=== PATIENT | male | born 1950 | race Caucasian/White ===

== ENCOUNTER → 2016-07-11 | Day surgery (SDC) | payer MEDICARE, OTHER ==
[~2016-07-11] MED LIST: FENTANYL PF 100 MCG/2 ML VIAL. IV PRN; IV RINGERS,LACTATED 1000ML 1,000 ML IV SCH; LIDOCAINE 1% 1 ML SYRINGE. ID PRN; LISI10TA2 PO; MIDAZOLAM HCL 2 MG/2 ML VIAL. IV PRN; PROPOFOL 40 ML IV ONE; RANI150C PO; TADA5TAB PO
[2016-07-11 11:51] VITALS: BP 144/86
--- NOTE | 2016-07-14 13:25 | PATHOLOGY ---
PATHOLOGY REPORT * * * * * * * * FINAL DIAGNOSIS: Colon biopsy, hepatic flexure polyp: - Tubular adenoma. COMMENT: There is no high grade dysplasia or evidence of malignancy. (JPM:csd; d/t: 07/14/2016) REPORT ELECTRONICALLY SIGNED BY: Mark Zaragoza M.D. DATE/TIME: 07/14/2016 13:24 * * * * * * * * GROSS PATHOLOGY: Received in formalin labeled "Evans Wright, hepatic flexure polyp," are two segments of loera soft tissue measuring 0.5 x 0.5 x 0.1 cm in aggregate dimensions and ranging from 0.4 to 0.5 cm in maximum dimension. The specimen is submitted entirely in cassette A1. (CAA; 07/11/2016) INITIAL CPT CODE(S): A; 46195 Professional services [place] [address] Technical services performed by [facility] at [address] [place] [address], [facility] [address] [address]. SPECIMEN(S) RECEIVED: A.Hepatic flexure polyp CLINICAL HISTORY: Dysphagia, CRCS PATIENT: EVANS WRIGHT /AGE: 11 1950 (Age: 66) PATIENT #: [id number] ALT CASE #: SPECIMEN COLLECTION DATE: 07/11/2016 SPECIMEN RECEIVED DATE: 07/11/2016 [facility] - [address] [place] [address] - PHONE: [phone] * * * END OF REPORT * * *
== END | disposition home or self-care (01) ==
LOC: ENDOS 09:29
PROVIDERS: ATTEND Internal Medicine Gastroenterology
DX: Z12.11 Encounter for screening for malignant neoplasm of colon (principal); K64.0 First degree hemorrhoids; D12.3 Benign neoplasm of transverse colon; K22.2 Esophageal obstruction; K29.50 Unspecified chronic gastritis without bleeding; M19.90 Unspecified osteoarthritis, unspecified site; I10 Essential (primary) hypertension; Z83.3 Family history of diabetes mellitus; Z85.46 Personal history of malignant neoplasm of prostate; Z72.89 Other problems related to lifestyle
CPT/HCPCS: 43235; 43450; 45385; 88305; J2704

== ENCOUNTER 2016-09-25 19:06 | Inpatient (IN) | payer MEDICARE, OTHER ==
[~2016-09-25] VITALS: Ht 177.8 cm; Wt 86.2 kg
[~2016-09-25 19:06] MED LIST changes: -FENTANYL PF 100 MCG/2 ML VIAL. IV PRN; -IV RINGERS,LACTATED 1000ML 1,000 ML IV SCH; -LIDOCAINE 1% 1 ML SYRINGE. ID PRN; -MIDAZOLAM HCL 2 MG/2 ML VIAL. IV PRN; -PROPOFOL 40 ML IV ONE
[2016-09-25] MEDS ORDERED: 0.9 % SODIUM CHLORIDE 10 ML DISP.SYRIN. IV PRN (19:15)
[2016-09-25] MEDS ORDERED: dilTIAZem IV PUSH 25 MG/5 ML VIAL IVP ONE (19:15)
[2016-09-25] MEDS ORDERED: ASPIRIN CHEWABLE 81 MG TABLET. PO ONE (19:15)
[2016-09-25] MEDS ORDERED: IV NORMAL SALINE 1000ML BAG 1,000 ML IV SCH (19:15)
--- NOTE | 2016-09-25 19:21 | PHYS DOC ---
Past Medical History Past Medical History: Arthritis, Cancer, GERD, Hypertension Additional Past Medical Histor: prostate cancer Past Surgical History: Other Additional Past Surgical Histo: prostate removed Alcohol Use: Heavy Drug Use: None Adult General Chief Complaint Chief Complaint: CHEST PAIN HPI HPI He is a pleasant 66-year-old male with a history of palpitations and prior Holter monitor that showed no acute findings. Today while getting home from work about 5 PM patient admits to having palpitations with some lightheaded dizziness and mild shortness of breath with no nausea, vomiting, diarrhea or chest pain. He says he feels anxious when he has these episodes last anywhere from a few minutes to half an hour. Upon arrival here to the mother but he had no complaint and his heart rate was normal. EMS when they picked him up his only complaint at the time was that he had to use restroom and as he was feeling palpitations. During the transportation they picked up A. fib and RVR on the monitor. She never had a history of such in the past. Patient denies any drug use, travel outside the country, other PE risk factors. Patient does admit he drinks anywhere from 4-6 beers daily and have her urine weekends. He's never had withdrawal symptoms, they're had any nausea vomiting or tremors after stopping taking alcohol. Patient denies any URI symptoms, fever, cough, runny nose, peripheral edema night sweats weight loss or other complaints. On initial presentation patient demonstrated palpitations with a heart rate greater than 130s on a monitor it looked as if it were H A. fib relation with RVR. Initial work up included alcohol level, cardiac workup, appropriate chest x -ray, fluids, antiemetics, diltiazem, aspirin, and admission to the hospital for evaluation of palpitations. Review of Systems Review of Systems Constitutional: Denies fever or chills [] Eyes: Denies change in visual acuity, redness, or eye pain [] HENT: Denies nasal congestion or sore throat [] Respiratory: Denies cough or shortness of breath [] Cardiovascular: No additional information not addressed in HPI [] GI: Denies abdominal pain, nausea, vomiting, bloody stools or diarrhea [] : Denies dysuria or hematuria [] Musculoskeletal: Denies back pain or joint pain [] Integument: Denies rash or skin lesions [] Neurologic: Denies headache, focal weakness or sensory changes [] Endocrine: Denies polyuria or polydipsia [] Current Medications Current Medications Current Medications Medications (Trade) Dose Ordered Sig/Kristina Start Time Stop Time Status Last Admin Dose Admin Acetaminophen (Tylenol) 650 mg PRN Q4HRS PRN 09/25/16 20:15 09/26/16 20:14 Aspirin (Children'S Aspirin) 324 mg 1X ONCE 09/25/16 19:15 09/25/16 19:18 DC Diltiazem HCl (Cardizem) 20 mg 1X ONCE 09/25/16 19:15 09/25/16 19:18 DC 09/25/16 19:35 20 MG Enoxaparin Sodium (Lovenox 80mg Syringe) 80 mg 1X ONCE 09/25/16 20:15 09/25/16 20:19 DC 09/25/16 20:26 80 MG Ondansetron HCl (Zofran) 4 mg PRN Q8HRS PRN 09/25/16 20:15 09/26/16 20:14 Sodium Chloride (Normal Saline Flush) 10 ml QSHIFT PRN 09/25/16 19:15 Allergies Allergies Allergies Coded Allergies Type Severity Reaction Last Updated Verified No Known Drug Allergies 07/11/16 No Physical Exam Physical Exam Constitutional: Well developed, well nourished, no acute distress, non-toxic appearance. [] HENT: Normocephalic, atraumatic, bilateral external ears normal, oropharynx moist, Eyes: PERRLA, EOMI, conjunctiva normal, no discharge. [] Neck: Normal range of motion, no tenderness, supple, no stridor. [] Cardiovascular: Irregular regular rhythm and rate patient noted be tachycardic Lungs & Thorax: Bilateral breath sounds clear to auscultation [] Abdomen: Bowel sounds normal, soft, no tenderness, no masses, no pulsatile masses. [] Skin: Warm, dry, no erythema, no rash. [] Back: No tenderness, no CVA tenderness. [] Extremities: No tenderness, no cyanosis, no clubbing, ROM intact, no edema. [] Neurologic: Alert and oriented X 3, normal motor function, normal sensory function, no focal deficits noted. [] Psychologic: Affect normal, judgement normal, mood normal. [] Current Patient Data Vital Signs Vital Signs Date Time Temp Pulse Resp B/P (MAP) Pulse Ox O2 Delivery O2 Flow Rate FiO2 09/25/16 19:35 134 140/95 09/25/16 19:06 99.0 18 97 Room Air 99.0 Patient noted to be tachycardic without get the or hypoxia. Lab Values Laboratory Tests Test 09/25/16 19:10 09/25/16 19:15 Urine Collection Type Unknown Urine Color Yellow Urine Clarity Clear Urine pH 6.0 Urine Specific [place] <=1.005 Urine Protein Negative mg/dL (NEG-TRACE) Urine Glucose (UA) Negative mg/dL (NEG) Urine Ketones (Stick) Negative mg/dL (NEG) Urine Blood Negative (NEG) Urine Nitrite Negative (NEG) Urine Bilirubin Negative (NEG) Urine Urobilinogen Dipstick 0.2 mg/dL (0.2 mg/dL) Urine Leukocyte Esterase Negative (NEG) Urine RBC 0 /HPF (0-2) Urine WBC 0 /HPF (0-4) Urine Squamous Epithelial Cells Few /LPF Urine Bacteria 0 /HPF (0-FEW) Urine Opiates Screen Neg (NEG) Urine Methadone Screen Neg (NEG) Urine Barbiturates Neg (NEG) Urine Phencyclidine Screen Neg (NEG) Urine Amphetamine/Methamphetamine Neg (NEG) Urine Benzodiazepines Screen Neg (NEG) Urine Cocaine Screen Neg (NEG) Urine Cannabinoids Screen Neg (NEG) Urine Ethyl Alcohol Neg (NEG) White Blood Count 7.2 x10^3/uL (4.0-11.0) Red Blood Count 5.04 x10^6/uL (4.30-5.70) Hemoglobin 15.9 g/dL (13.0-17.5) Hematocrit 46.4 % (39.0-53.0) Mean Corpuscular Volume 92 fL (79-100) Mean Corpuscular Hemoglobin 32 pg (25-35) Mean Corpuscular Hemoglobin Concent 34 g/dL (31-37) Red Cell Distribution Width 13.2 % (11.5-14.5) Platelet Count 243 x10^3/uL (140-400) Neutrophils (%) (Auto) 67 % (31-73) Lymphocytes (%) (Auto) 21 % (24-48) L Monocytes (%) (Auto) 8 % (0-9) Eosinophils (%) (Auto) 4 % (0-3) H Basophils (%) (Auto) 1 % (0-3) Neutrophils # (Auto) 4.9 x10^3uL (1.8-7.7) Lymphocytes # (Auto) 1.5 x10^3/uL (1.0-4.8) Monocytes # (Auto) 0.5 x10^3/uL (0.0-1.1) Eosinophils # (Auto) 0.3 x10^3/uL (0.0-0.7) Basophils # (Auto) 0.0 x10^3/uL (0.0-0.2) D-Dimer ([place]) < 0.27 ug/mlFEU Sodium Level 143 mmol/L (136-145) Potassium Level 3.6 mmol/L (3.5-5.1) Chloride Level 106 mmol/L (98-107) Carbon Dioxide Level 26 mmol/L (21-32) Anion Gap 11 (6-14) Blood Urea Nitrogen 23 mg/dL (8-26) Creatinine 1.0 mg/dL (0.7-1.3) Estimated GFR (Cockcroft-Gault) 75.0 Glucose Level 143 mg/dL (70-99) H Calcium Level 9.4 mg/dL (8.5-10.1) Magnesium Level 2.3 mg/dL (1.8-2.4) Total Bilirubin 0.4 mg/dL (0.2-1.0) Direct Bilirubin 0.1 mg/dL (0.0-0.2) Aspartate Amino Transferase (AST) 23 U/L (15-37) Alanine Aminotransferase (ALT) 34 U/L (16-63) Alkaline Phosphatase 159 U/L (46-116) H Creatine Kinase 131 U/L (39-308) Creatine Kinase MB (Mass) 2.2 ng/mL (0.0-3.6) Creatine Kinase MB Relative Index 1.7 % (0-4) Troponin I Quantitative < 0.017 ng/mL (0.000-0.055) LY-Mse-W-Type Natriuretic Peptide 127 pg/mL (0-124) H Total Protein 7.3 g/dL (6.4-8.2) Albumin 4.1 g/dL (3.4-5.0) Lipase 271 U/L (73-393) Thyroid Stimulating Hormone (TSH) 1.123 uIU/mL (0.358-3.74) Ethyl Alcohol Level < 10 mg/dL (0-10) Laboratory Tests 09/25/16 19:15 Laboratory Tests 09/25/16 19:15 EKG EKG [] KG timed 1913 p.m. 09/25/2016 demonstrates atrial fibrillation with a rate of [address] segment T-wave changes consistent with ischemia EKG read by Dr. Camacho. Radiology/Procedures Radiology/Procedures [] Chest x-ray read by Dr. Camacho time is 192709/25/2016 chest x-ray demonstrates normal cardiac shadow no obvious tortuous aorta or constipation of the aorta no infiltrates or pneumothorax is no subcutaneous tenderness air or deep sulcus sign subdiaphragmatic air. Otherwise normal looking chest x-ray. Course & Med Decision Making Course & Med Decision Making Pertinent Labs and Imaging studies reviewed. (See chart for details) []Hide Shaker note: Mary Martinez of internal medicine his primary care doctor Hide Shaker called at of the service cultures had 8:10 PM Consult called back at 8:35 PM Discussed the case I presented and they agreed with admission. Time of acceptance 8:35 PM Differential diagnosis for chest pain: Pericarditis, myocarditis, endocarditis, pneumothorax, pneumonia, aortic dissection, esophageal spasm, esophagitis, peptic ulcer disease, acute coronary syndrome, mediastinitis, Boerhaave syndrome , musculoskeletal chest wall pain, costochondritis, intercostal strain, rib fracture, pulmonary contusion, pneumonitis, pleural effusion, pericardial effusion, pericardial tamponode, and pleurisy. Considered as part of the evaluation of this patient's presentation. I'm concerned that this is part of holiday heart and his consumption of alcohol may be causing this atrial arrhythmia. Patient's been given IV fluids, antiemetics, as well as aspirin and rectal age and diltiazem. Patient is comfortable rate is well-controlled in the mid 80s at this time he still not atrial ablation. Patient also given a subcutaneous Lovenox will be seen by cardiology and continued evaluation to rule out cardiac ischemia and treatment Either ablated or treated with either electricity or medications to control the rhythm. Impression: Atrial fibrillation new onset with palpitation disposition: Admission to the hospital internal medicine service with cardiology evaluation. Dragon Disclaimer Dragon Disclaimer This electronic medical record was generated, in whole or in part, using a voice recognition dictation system. Departure Departure Impression: Primary Impression: Palpitations Additional Impression: Atrial fibrillation Disposition: 09 ADMITTED INPATIENT Admitting Physician: Mary Martinez Referrals: MARY MARTINEZ MD (PCP) Problem Qualifiers MICHELINE CAMACHO MD Sep 25, 2016 19:21
[2016-09-25 19:31] LABS: BILIRUBIN,URINE NEGATIVE (NEG); GLUCOSE,URINE NEGATIVE (NEG); NITRITE,URINE NEGATIVE (NEG); PROTEIN,URINE NEGATIVE (NEG-TRACE); UROBILINOGEN,URINE 0.2 mg/dL (0.2 mg/dL)
[2016-09-25 19:32] LABS: BASO % 1 % (0-3); EOS % 4 % (0-3); HEMATOCRIT 46.4 % (39.0-53.0); HEMOGLOBIN 15.9 g/dL (13.0-17.5); LYMPH # 1.5 x10^3/uL (1.0-4.8); LYMPH % 21 % (24-48); MEAN CORPUSCULAR HEMOGLOBIN 32 pg (25-35); MEAN CORPUSCULAR HGB CONC 34 g/dL (31-37); MEAN CORPUSCULAR VOLUME 92 fL (79-100); MONO % 8 % (0-9); NEUT % 67 % (31-73); PLATELET COUNT 243 x10^3/uL (140-400); RED BLOOD COUNT 5.04 x10^6/uL (4.30-5.70); RED CELL DISTRIBUTION WIDTH 13.2 % (11.5-14.5); WHITE BLOOD COUNT 7.2 x10^3/uL (4.0-11.0)
[2016-09-25 19:35] LABS: BARBITURATES NEG (NEG); BENZODIAZEPINES NEG (NEG); CANNABINOIDS NEG (NEG); COCAINE NEG (NEG); METHADONE NEG (NEG); OPIATES NEG (NEG); PHENCYCLIDINE NEG (NEG)
[2016-09-25 19:41] LABS: BACTERIA,URINE 0 /HPF (0-FEW); RBC,URINE 0 /HPF (0-2); SQUAMOUS EPITHELIAL CELL,UR FEW /LPF; WBC,URINE 0 /HPF (0-4)
[2016-09-25 19:59] LABS: CALCIUM 9.4 mg/dL (8.5-10.1); POTASSIUM 3.6 mmol/L (3.5-5.1)
[2016-09-25 20:06] LABS: ALBUMIN 4.1 g/dL (3.4-5.0); DIRECT BILIRUBIN 0.1 mg/dL (0.0-0.2); MAGNESIUM 2.3 mg/dL (1.8-2.4); TOTAL BILIRUBIN 0.4 mg/dL (0.2-1.0); TOTAL PROTEIN 7.3 g/dL (6.4-8.2)
[2016-09-25] MEDS ORDERED: ACETAMINOPHEN 325 MG TABLET. PO PRN (20:15)
[2016-09-25] MEDS ORDERED: ONDANSETRON PF 4 MG/2 ML VIAL. IV PRN (20:15)
[2016-09-25 20:23] LABS: CKMB MASS 2.2 ng/mL (0.0-3.6)
[2016-09-25 22:17] VITALS: BP 132/95
[2016-09-25] MEDS ORDERED: CELE200C PO (23:31)
[2016-09-26 03:29] VITALS: BP 118/81
--- NOTE | 2016-09-26 06:11 | EKG ---
[facility] [address] [place] [address] Test Date: 2016-09-25 Test Time: 19:13:22 Pat Name: JOSEPH WRIGHT Department: Room: 209 1 Gender: M Remotely Piloted Vehicle Controller: : 1950 Requested By: MICHELINE CAMACHO Order Number: [id number] Reading MD: Mekhi Dempsey Measurements Intervals [place] Rate: 127 P: FL: QRS: -4 QRSD: 82 T: 40 QT: 302 QTc: 444 Interpretive Statements ATRIAL FIBRILLATION, RATE 127. NONSPECIFIC ST-T WAVE CHANGES. LEFTWARD AXIS RI6.01 Unconfirmed report No previous ECG available for comparison Electronically Signed On 10-01-2016 9:24:08 CDT by Mekhi Dempsey
[2016-09-26 07:00] VITALS: BP 138/92
--- NOTE | 2016-09-26 07:05 | EKG ---
[facility] [address] [place] [address] Test Date: 2016-09-25 Test Time: 20:39:41 Pat Name: JOSEPH WRIGHT Department: Room: 209 1 Gender: M Director Commercial Sales: : 1950 Requested By: MICHELINE CAMACHO Order Number: [id number] Reading MD: Mekhi Dempsey Measurements Intervals [place] Rate: 86 P: OR: QRS: -7 QRSD: 86 T: 22 QT: 362 QTc: 436 Interpretive Statements ATRIAL FIBRILLATION. LEFTWARD AXIS NONSPECIFIC ST-T WAVE CHANGES. RI6.01 Unconfirmed report No previous ECG available for comparison Electronically Signed On 10-01-2016 9:24:50 CDT by Mekhi Dempsey
--- NOTE | 2016-09-26 08:02 | ACF ---
Admission Forms Criteria TELEMETRY CARE Telemetry Admission Guidelines (Place 'X' for any and all applicable criteria): Admission to telemetry [A] may be indicated for ANY ONE of the following(1)(2)(3 )(4)(5): [X]I. Cardiac disease, including ANY ONE of the following (9)(10)(11)(12)(13 ): [ ]a) Postacute KS [ ]b) Low-risk patients with ST-segment elevation KS who have undergone successful percutaneous coronary intervention [ ]c) Unstable angina [ ]d) Suspected KS (until it is ruled out) [ ]e) Post cardiac surgery (first 48 to 72 hours unless complications occur) [X]f) Acute arrhythmias (including significant tachycardia or bradycardia) [B] [ ]g) Firing of an implantable cardioverter defibrillator [C] [ ]h) Suspected pacemaker or implantable cardioverter defibrillator malfunction (10) [ ]i) New administration or adjustment of an antiarrhythmic drug [D ] [ ]j) Child admitted for acute congestive heart failure [ ]j) Long QT syndrome [ ]k) Advanced heart block (eg, second-degree Mobitz type II, third- degree heart block) [ ]l) Acute myocarditis or pericarditis [ ]m) Short-term (ambulatory or inpatient) monitoring after a cardiac procedure as indicated by ANY ONE of the following [E]: [ ]i) Electrophysiologic studies [ ]ii) Percutaneous coronary intervention with stent placement [ ]iii) Pacemaker placement with cardiac conduction defect [ ]iv) Implantable cardiac defibrillator placement [ ]II. Drug overdose or poisoning with substance that causes arrhythmias or QT prolongation (eg, phenothiazines, sympathomimetic agents, cyclic antidepressants, digitalis, antiarrhythmic drugs)(15) [ ]III. Short-term (ambulatory or inpatient) monitoring after therapeutic or diagnostic procedure requiring conscious sedation or anesthesia (eg, endoscopy, elective cardioversion) [ ]IV. Acute cerebrovascular even[F](18) [ ]V. Massive blood transfusion (eg, at least 10 units of packed red blood cells in 24 hours) [ ]. Variceal bleeding after endoscopy, sclerotherapy, or IV vasopressin [ ]VII. Uncorrected electrolyte abnormalities associated with an increased risk of dangerous arrhythmia [G]; examples include [ ]a) Hyperkalemia with attributable ECG changes [ ]b) Potassium greater than 6.5 mmol/L (mEq/L) in a patient without history of chronic renal disease [ ]c) Prolonged QT attributed to hypokalemia, hypomagnesemia, or hypocalcemia [ ]VIII.Unexplained syncope or other neurologic event suspected of being due to arrhythmia due to a finding that increases risk; examples include(19)(20)(21): [ ]a) High-risk ECG findings (eg, bifascicular block, bradycardia, abnormal QT interval, ventricular pre- excitation) [ ]b) History of previous syncope due to arrhythmia [ ]c) Abnormal ventricular function (eg, reduced ejection fraction ) [ ]d) Exertional or supine syncope [ ]e) Concerning syncope characteristics (eg, sudden loss of consciousness without prodrome) [ ]f) Family history of sudden [ ]g) Use of arrhythmogenic medication [ ]h) Suspected cardiac ischemia [ ]i) Known channelopathy (eg, long QT syndrome, Brugada syndrome, or catecholaminergic paroxysmal ventricular tachycardia) [ ]j) Known structural heart disease (eg, hypertrophic cardiomyopathy , severe valvular disease) [ ]k) Palpitations preceding syncope The original [employer] content created by [employer] has been revised. The portions of the content which have been revised are identified through the use of italic text or in bold, and [email or web address] has neither reviewed nor approved the modified material. All other unmodified content is copyright [employer]. Please see references footnoted in the original [employer] edition 2016 Admission Criteria Met?: Yes SHARAD BOWEN Sep 26, 2016 08:02
--- NOTE | 2016-09-26 08:14 | RAD ---
Exam: PA and lateral chest radiograph History: Tachycardia for one day, palpitations. Comparison: None. Findings: Cardiomediastinal silhouette is within normal limits for size. Bilateral lung rahman are free of focal infiltrate. No pleural effusion is seen. There is mild wedging of 2 adjacent mid thoracic vertebral bodies, age indeterminate, may be old. Impression: No acute cardiopulmonary process.
--- NOTE | 2016-09-26 08:56 | PDOC ---
Provider Note Provider Note [id number] MARY ROPER MD Sep 26, 2016 08:56
[2016-09-26] MEDS ORDERED: LISINOPRIL 10 MG TABLET PO SCH (09:00)
[2016-09-26] MEDS ORDERED: FAMOTIDINE 20 MG TABLET. PO SCH (09:00)
[2016-09-26] MEDS ORDERED: CELECOXIB 200 MG CAPSULE. PO SCH (09:00)
[2016-09-26] MEDS ORDERED: ASPIRIN 325 MG TABLET PO SCH (09:30)
--- NOTE | 2016-09-26 09:47 | HP ---
ADMIT DATE: 09/25/2016 CHIEF COMPLAINT: Irregular heartbeat, shortness of breath. HISTORY OF PRESENT ILLNESS: A 66-year-old white male who is normally healthy with mild hypertension and has had recurrent episodes of palpitations in the past. He has worn a Holter monitor at least once through Dr. Alicea and apparently no arrhythmias were found. He was having some shortness of breath and mild chest discomfort while at home working on the computer and was found to have a rapid heartbeat and in the Emergency Room was found to be in atrial fibrillation with rapid ventricular response. He was given some diltiazem and then aspirin and Lovenox and he converted spontaneously a few hours later on the floor and he has had no further problems since then. His initial cardiac enzymes and labs were all within normal limits. MEDICATIONS: Include lisinopril daily, Cialis for prostate symptoms, Zantac and Celebrex. ALLERGIES: No allergies are known. He has had no previous myocardial infarctions or any significant medical problems. SOCIAL HISTORY: He is , employed. He drinks 3-6 drinks on a daily basis, sometimes more on weekends, but does not admit to withdrawal symptoms and he does not drink. He is a nonsmoker. FAMILY HISTORY: Unremarkable. REVIEW OF SYSTEMS: No other complaints. OBJECTIVE: ENT: All within normal limits. NECK: No masses, nodes or bruits. LUNGS: Clear. CARDIOVASCULAR: Regular rate. No irregular beat, murmur or tachycardia. ABDOMEN: Soft, benign and nontender. No masses, megaly or nodes. EXTREMITIES: Good pedal and radial pulses. No joint or skin lesions or nail bed findings. NEUROLOGIC: Physiologic, nonfocal. No tremors, no changes in mental status or cranial nerves. GENITOURINARY AND RECTAL: Deferred. ASSESSMENT: Transient atrial fibrillation with rapid ventricular response. This may have been intermittent over the last several months at an unknown frequency. Most likely etiology is alcohol at this time as he has controlled hypertension and is not hyperthyroid and does not have a known lung disease. PLAN: Echo to evaluate for any evidence of mitral valve disease and myocardial ejection fraction level. Cardiology consult, daily aspirin. We may need to consider the use of daily prophylactic medicines perhaps beta hitesh or diltiazem. MARY ROPER MD DR: KIRSTIN/carrie JOB#: [id number] / [id number]
[2016-09-26 11:00] VITALS: BP 156/92
--- NOTE | 2016-09-26 11:19 | PDOC2 ---
SHAYLA SOL SAND DRIER 09/26/16 1119: CARDIAC CONSULT DATE OF CONSULT Date of Consult DATE: 09/26/16 TIME: 11:14 REASON FOR CONSULT Reason for Consult: AFIB REFERRING PHYSICIAN Referring Physician: Juan SOURCE Source: Chart review, Patient HISTORY OF PRESENT ILLNESS HISTORY OF PRESENT ILLNESS This is a pleasant 66 yo male admitted for complains of palpitations and chest pain. Reports that he has been having palpitations episode and usually fades away. This has been occurring probably once a wk as he reported and it has not been really bothering him till yesterday. Yesterday afternoon about 4 PM he came home from work, was working on his computer when he started having sensation of palpitations then followed by chest tightness. Eventually he felt a little SOA. He felt his wrist and his pulse was fast and he could not even count it and erratic. This lasted about 20 minutes before getting better. Around 0630 his asked him to carry the paddle board and that is when he started not feeling good and his previous symptoms recurred and EMS was called. In ED he was noted with AFIB RVR and was given cardizem IV x1 and he actually converted eventually without continuous cardizem infusion. He had a holter in 2013 and was noted with frequent PVCs but no AFIB. Denies having any AFIB in the past. No prior CAD, VTE. Denies any previous internal bleeding. He does drink 2 shots of rum daily with coke. pPast tobaccoism. Denies any symptoms of UVALDO and no excessive caffeinated beverages. PAST MEDICAL HISTORY Cardiovascular: HTN, Other (venous insufficiency) Pulmonary: No pertinent hx CENTRAL NERVOUS SYSTEM: Other (No pertinent history) GI: GERD, Hemorrhoids Heme/Onc: Cancer (prostate) Hepatobiliary: No pertinent hx Psych: No pertinent hx Musculoskeletal: Osteoarthritis Rheumatologic: No pertinent hx Infectious disease: No pertinent hx ENT: No pertinent hx Renal/: Prostate Ca., Other (ED; nephrolithiasis) Endocrine: No pertinent hx Dermatology: No pertinent hx PAST SURGICAL HISTORY Past Surgical History: Appendectomy, Other (prostatectomy; cystoscopy with lithotripsy) FAMILY HISTORY Family History: Coronary Artery Disease (mother and father) SOCIAL HISTORY Smoke: No (10-15 pk yr, quit a while back) ALCOHOL: other (2 shots of rum daily) Drugs: None Lives: with Family CURRENT MEDICATIONS CURRENT MEDICATIONS Current Medications Medications (Trade) Dose Ordered Sig/Kristina Route PRN Reason Start Time Stop Time Status Last Admin Dose Admin Diltiazem HCl (Cardizem) 20 mg 1X ONCE IVP 09/25/16 19:15 09/25/16 19:18 DC 09/25/16 19:35 Sodium Chloride 1,000 ml @ 1,000 mls/hr Q1H IV 09/25/16 19:15 09/25/16 20:14 DC 09/25/16 19:34 Enoxaparin Sodium (Lovenox 80mg Syringe) 80 mg 1X ONCE SQ 09/25/16 20:15 09/25/16 20:19 DC 09/25/16 20:26 Celecoxib (CeleBREX) 200 mg DAILY PO 09/26/16 09:00 09/26/16 09:24 Lisinopril (Prinivil) 10 mg DAILY PO 09/26/16 09:00 09/26/16 09:24 Famotidine (Pepcid) 20 mg BID PO 09/26/16 09:00 09/26/16 09:24 Aspirin (Alice Aspirin) 325 mg DAILYWBKFT PO 09/26/16 09:30 09/26/16 09:24 ALLERGIES ALLERGIES: Coded Allergies: No Known Drug Allergies (Unverified , 07/11/16) ROS Review of System 14 point ROS evaluated with pertinent positives noted per HPI PHYSICAL EXAM General: Alert, Oriented X3, Cooperative, No acute distress HEENT: Atraumatic, Mucous membr. moist/pink Lungs: Clear to auscultation, Normal air movement Heart: Regular rate, Normal S1, Normal S2, No murmurs Abdomen: Soft, No tenderness Extremities: No cyanosis, No edema Skin: No breakdown, No significant lesion Neuro: Normal speech, Sensation intact Psych/Mental Status: Mental status NL, Mood NL MUSCULOSKELETAL: Osteoarthritic changes both hands VITALS VITALS Vital Signs Date Time Temp Pulse Resp B/P (MAP) Pulse Ox O2 Delivery O2 Flow Rate FiO2 09/26/16 09:24 54 138/92 09/26/16 07:55 Room Air 09/26/16 07:00 98.0 16 95 98.0 LABS Lab: Laboratory Tests Test 09/25/16 19:10 09/25/16 19:15 09/26/16 02:15 09/26/16 08:13 Urine Collection Type Unknown Urine Color Yellow Urine Clarity Clear Urine pH 6.0 Urine Specific [place] <=1.005 Urine Protein Negative mg/dL (NEG-TRACE) Urine Glucose (UA) Negative mg/dL (NEG) Urine Ketones (Stick) Negative mg/dL (NEG) Urine Blood Negative (NEG) Urine Nitrite Negative (NEG) Urine Bilirubin Negative (NEG) Urine Urobilinogen Dipstick 0.2 mg/dL (0.2 mg/dL) Urine Leukocyte Esterase Negative (NEG) Urine RBC 0 /HPF (0-2) Urine WBC 0 /HPF (0-4) Urine Squamous Epithelial Cells Few /LPF Urine Bacteria 0 /HPF (0-FEW) Urine Opiates Screen Neg (NEG) Urine Methadone Screen Neg (NEG) Urine Barbiturates Neg (NEG) Urine Phencyclidine Screen Neg (NEG) Urine Amphetamine/Methamphetamine Neg (NEG) Urine Benzodiazepines Screen Neg (NEG) Urine Cocaine Screen Neg (NEG) Urine Cannabinoids Screen Neg (NEG) Urine Ethyl Alcohol Neg (NEG) White Blood Count 7.2 x10^3/uL (4.0-11.0) Red Blood Count 5.04 x10^6/uL (4.30-5.70) Hemoglobin 15.9 g/dL (13.0-17.5) Hematocrit 46.4 % (39.0-53.0) Mean Corpuscular Volume 92 fL (79-100) Mean Corpuscular Hemoglobin 32 pg (25-35) Mean Corpuscular Hemoglobin Concent 34 g/dL (31-37) Red Cell Distribution Width 13.2 % (11.5-14.5) Platelet Count 243 x10^3/uL (140-400) Neutrophils (%) (Auto) 67 % (31-73) Lymphocytes (%) (Auto) 21 % (24-48) Monocytes (%) (Auto) 8 % (0-9) Eosinophils (%) (Auto) 4 % (0-3) Basophils (%) (Auto) 1 % (0-3) Neutrophils # (Auto) 4.9 x10^3uL (1.8-7.7) Lymphocytes # (Auto) 1.5 x10^3/uL (1.0-4.8) Monocytes # (Auto) 0.5 x10^3/uL (0.0-1.1) Eosinophils # (Auto) 0.3 x10^3/uL (0.0-0.7) Basophils # (Auto) 0.0 x10^3/uL (0.0-0.2) D-Dimer ([place]) < 0.27 ug/mlFEU Sodium Level 143 mmol/L (136-145) Potassium Level 3.6 mmol/L (3.5-5.1) Chloride Level 106 mmol/L (98-107) Carbon Dioxide Level 26 mmol/L (21-32) Anion Gap 11 (6-14) Blood Urea Nitrogen 23 mg/dL (8-26) Creatinine 1.0 mg/dL (0.7-1.3) Estimated GFR (Cockcroft-Gault) 75.0 Glucose Level 143 mg/dL (70-99) Calcium Level 9.4 mg/dL (8.5-10.1) Magnesium Level 2.3 mg/dL (1.8-2.4) Total Bilirubin 0.4 mg/dL (0.2-1.0) Direct Bilirubin 0.1 mg/dL (0.0-0.2) Aspartate Amino Transf (AST/SGOT) 23 U/L (15-37) Alanine Aminotransferase (ALT/SGPT) 34 U/L (16-63) Alkaline Phosphatase 159 U/L (46-116) Creatine Kinase 131 U/L (39-308) Creatine Kinase MB (Mass) 2.2 ng/mL (0.0-3.6) Creatine Kinase MB Relative Index 1.7 % (0-4) Troponin I Quantitative < 0.017 ng/mL (0.000-0.055) < 0.017 ng/mL (0.000-0.055) < 0.017 ng/mL (0.000-0.055) WQ-Wvn-N-Type Natriuretic Peptide 127 pg/mL (0-124) Total Protein 7.3 g/dL (6.4-8.2) Albumin 4.1 g/dL (3.4-5.0) Lipase 271 U/L (73-393) Thyroid Stimulating Hormone (TSH) 1.123 uIU/mL (0.358-3.74) Ethyl Alcohol Level < 10 mg/dL (0-10) ASSESSMENT/PLAN ASSESSMENT/PLAN 1. AFIB RVR: likely paroxysmal for a while. currently SB lowest in the 40s. Received cardizem IV x1 2. Possible tachy willi syndrome: QTc 404. 3. HTN: controlled 4. ETOH use: 2 shots rum daily Recommendations 1. [id number] is 2. ASA vs NOAC, discussed risks and benefits and agreed with NOAC. Will start on xarelto as [facility] has this in stock. 2. No potential extracardiac triggers are noted at this time, await TTE. 3. Discussed the possibility of pacer device pending event monitor result. Will note chronotropic response with ambulation. 4. Pt is to leave for [place] on 10/11/2016, Will arrange for 4 weeks event monitor and will consider for pill in pocket flecainide an option pending TTE result. 5. Continue with lisinopril. Low dose Toprol is a consideration pending HR trend. Will discuss with primary form coverer 6. Discuss to abstain from ETOH for now and avoid stimulants. 7. Significant discussion regarding diagnosis and treatment plan with pt and spouse. Problems: SOHAN PORTER MD 09/26/16 1910: CARDIAC CONSULT ALLERGIES ALLERGIES: Coded Allergies: No Known Drug Allergies (Unverified , 07/11/16) ASSESSMENT/PLAN ASSESSMENT/PLAN Patient seen and examined. Agree with above nurse practitioner note. 66-year-old male presenting to the hospital in the setting of A. fib with RVR. Etiology/precipitant factor is unclear. On examination he has normal heart sounds. Currently in sinus rhythm after initial bolus of Cardizem. Normal cardiac exam. Echocardiogram demonstrates normal LV function. We will send him home on low-dose Toprol-XL given his. Cardiac resting state. He has appropriate chronotropic response and has ability to get his heart rates to the 80s. We will also start him on anticoagulation with Xarelto. Discussed with patient and family. Follow-up in the office in 4 weeks after event monitoring. Problems: SHAYLA SOL APRN Sep 26, 2016 11:19 SOHAN PORTER MD Sep 26, 2016 19:10
[2016-09-26 11:31] LABS: CALCIUM 8.5 mg/dL (8.5-10.1); POTASSIUM 4.4 mmol/L (3.5-5.1)
[2016-09-26] MEDS ORDERED: METOPROLOL TART IMMED RELEASE 25 MG TABLET. PO PRN (12:00)
[2016-09-26] MEDS ORDERED: APIXABAN 5 MG TABLET. PO SCH (12:30)
--- NOTE | 2016-09-26 14:39 | EKG ---
[facility] [address] [place] [address] Test Date: 2016-09-26 Test Time: 13:54:35 Pat Name: JOSEPH WRIGHT Department: Room: 209 1 Gender: M Hand I Tube Bender: : 1950 Requested By: SHAYLA SOL Order Number: [id number] Reading MD: Mekhi Dempsey Measurements Intervals [place] Rate: 61 P: 47 MO: 152 QRS: -3 QRSD: 86 T: 35 QT: 400 QTc: 404 Interpretive Statements SINUS RHYTHM LEFTWARD AXIS QRS(T) CONTOUR ABNORMALITY CONSIDER ANTEROLATERAL MYOCARDIAL DAMAGE POSSIBLY ABNORMAL ECG RI6.01 No previous ECG available for comparison Electronically Signed On 10-01-2016 9:31:53 CDT by Mekhi Dempsey
--- NOTE | 2016-09-26 14:57 | CARD ---
APPROVED REPORT EXAM: Two-dimensional and M-mode echocardiogram with Doppler and color Doppler. Other Information Quality : Good Rhythm : Bradycardia INDICATION Atrial Fibrillation 2D DIMENSIONS RVDd2.7 (2.9-3.5cm)Left Atrium(2D)3.4 (1.6-4.0cm) IVSd1.4 (0.7-1.1cm)Aortic Root(2D)2.9 (2.0-3.7cm) LVDd4.8 (3.9-5.9cm)LVOT Diameter2.4 (1.8-2.4cm) PWd1.2 (0.7-1.1cm)LVDs2.5 (2.5-4.0cm) FS (%) 30.0 %SV85.3 ml LVEF(%)60.0 (>50%) Aortic Valve AoV Peak Russell.152.8cm/sAoV VTI27.3cm AO Peak GR.9.3mmHgLVOT Peak Russell.148.1cm/s LVOT VTI 27.44cmAO Mean GR.4mmHg KETURAH (VMAX)4.63uz4UER (VTI)4.48cm2 Mitral Valve MV E Yprprzyc61.0cm/sMV DECEL TWIB158ff MV A Yowezwxc37.7cm/sMV YLJ19yx E/A Ratio0.8MVA (PHT)3.35cm2 TDI E/Lateral E'8.1E/Medial E'12.6 Tricuspid Valve TR P. Kktaxjrj953hs/sRAP PHYCAZOF1fsKh TR Peak Gr.26fsMlZLOP50ymFm Pulmonary Vein S1 Imurjonf19.5cm/sD2 Lwglrzvv36.1cm/s PVa ankrvfwo616hzqd LEFT VENTRICLE The left ventricle is normal size. There is mild concentric left ventricular hypertrophy. The left ve ntricular systolic function is normal and the ejection fraction is within normal range. The Ejection Fraction is 55-60%. There is normal LV segmental wall motion. Transmitral Doppler flow pattern is Gra de I-abnormal relaxation pattern. RIGHT VENTRICLE The right ventricle is normal size. The right ventricular systolic function is normal. ATRIA The left atrium size is normal. The right atrium size is normal. The interatrial septum is intact wit h no evidence for an atrial septal defect or patent foramen ovale as noted on 2-D or Doppler imaging. AORTIC VALVE The aortic valve is calcified but opens well. Doppler and Color Flow revealed mild aortic regurgitati on. There is no significant aortic valvular stenosis. MITRAL VALVE The mitral valve is normal in structure and function. There is no evidence of mitral valve prolapse. There is no mitral valve stenosis. Doppler and Color-flow revealed mild mitral regurgitation. TRICUSPID VALVE The tricuspid valve is normal in structure and function. Doppler and Color Flow revealed trace tricus pid regurgitation. The PA pressure was estimated at 29 mmHg. There is no tricuspid valve stenosis. PULMONIC VALVE Doppler and Color Flow revealed trace pulmonic valvular regurgitation. There is no pulmonic valvular stenosis. GREAT VESSELS The aortic root is normal in size. The ascending aorta is at the upper limits of normal at 3.6 cm. Th e IVC is normal in size and collapses >50% with inspiration. PERICARDIAL EFFUSION There is no evidence of significant pericardial effusion. Critical Notification Critical Value: No <Conclusion> The left ventricular systolic function is normal and the ejection fraction is within normal range. Th e Ejection Fraction is 55-60%. There is normal LV segmental wall motion. Doppler and Color Flow revealed mild aortic regurgitation. The ascending aorta is at the upper limits of normal at 3.6 cm.
[2016-09-26 15:00] VITALS: BP 135/87
[2016-09-26] MEDS ORDERED: METOPROLOL SUCC 24HR ER 25 MG TAB.ER.24H. PO SCH (15:00)
[2016-09-26] MEDS ORDERED: RIVA20TA2 PO (18:28)
[2016-09-26] MEDS ORDERED: METO25TA9 PO (18:28)
--- NOTE | 2016-09-26 22:51 | DS ---
DATE OF DISCHARGE: 09/26/2016 HOSPITAL SUMMARY: The patient developed atrial fibrillation, chest discomfort and shortness of breath at home and came in atrial fibrillation with rapid ventricular response. He converted spontaneously a few hours after admission. Echocardiogram was all within normal limits as was cardiac enzymes and CBC, chemistry profile, and TSH. He was seen by Dr. Estes who felt that the patient needed prophylaxis with Xarelto more than taking aspirin daily and it is comfortable to follow him as an outpatient at this point. FINAL DIAGNOSES: 1. Atrial fibrillation with rapid ventricular response with spontaneous resolution. 2. Chronic alcohol abuse, it may be contributing to atrial fibrillation. OPERATIONS, PROCEDURES, COMPLICATIONS: None. CONSULTATIONS: Dr. Estes. DISPOSITION: Xarelto ____ mg daily, metoprolol sustained release 25 mg at bedtime for prevention. Office followup with Dr. Martinez in 2-4 weeks. He is trying to restrict his alcohol to two drinks a day or less as this may be the etiology of his atrial fibrillation. PROGNOSIS: Good. MARY MARTINEZ MD DR: KIRSTIN/carrie JOB#: [id number] / [id number]
[2016-09-27] MEDS ORDERED: RIVAROXABAN 10 MG TABLET. PO SCH (17:00)
== END 2016-09-26 19:07 | disposition home or self-care (01) | DRG 310 ==
LOC: ER 19:06 → 2 NORTH 20:20
PROVIDERS: ADMIT Family Medicine; ATTEND Family Medicine
DX: I48.91 Unspecified atrial fibrillation (principal); K21.9 Gastro-esophageal reflux disease without esophagitis; I10 Essential (primary) hypertension; F10.10 Alcohol abuse, uncomplicated; M19.90 Unspecified osteoarthritis, unspecified site; K64.9 Unspecified hemorrhoids; Z79.899 Other long term (current) drug therapy; Z82.49 Family history of ischemic heart disease and other diseases of the circulatory system; Z85.46 Personal history of malignant neoplasm of prostate; Z87.442 Personal history of urinary calculi; Z87.891 Personal history of nicotine dependence; Z90.49 Acquired absence of other specified parts of digestive tract; Z90.79 Acquired absence of other genital organ(s)
CPT/HCPCS: 36415; 71020; 80048; 80076; 81001; 82550; 82553; 83690; 83735; 83880; 84443; 84484; 85027; 85379; 93005; 93306; 96372; 96374; G0480; G0481; J1650; J3490; J7030; 99285-25

== ENCOUNTER 2017-06-20 15:49 | Emergency (ER) | payer MEDICARE, OTHER ==
[2017-06-20] MEDS: IV NORMAL SALINE 500ML BAG 500 ML IV ×2 (16:15)
[2017-06-20 16:24] LABS: ADD MAN DIFF? NO
[2017-06-20 16:29] LABS: BASO % 0 % (0-3); EOS # 0.3 x10^3/uL (0.0-0.7); EOS % 5 % (0-3); HEMATOCRIT 36.8 % (39.0-53.0); HEMOGLOBIN 12.5 g/dL (13.0-17.5); LYMPH # 1.2 x10^3/uL (1.0-4.8); LYMPH % 18 % (24-48); MEAN CORPUSCULAR HEMOGLOBIN 31 pg (25-35); MEAN CORPUSCULAR HGB CONC 34 g/dL (31-37); MEAN CORPUSCULAR VOLUME 91 fL (79-100); MONO # 0.5 x10^3/uL (0.0-1.1); MONO % 7 % (0-9); NEUT # 4.6 x10^3uL (1.8-7.7); NEUT % 70 % (31-73); PLATELET COUNT 167 x10^3/uL (140-400); RED BLOOD COUNT 4.02 x10^6/uL (4.30-5.70); RED CELL DISTRIBUTION WIDTH 12.5 % (11.5-14.5); WHITE BLOOD COUNT 6.6 x10^3/uL (4.0-11.0)
[2017-06-20 16:40] LABS: INR 1.8 (0.8-1.1); PARTIAL THROMBOPLASTIN TIME 32 SEC (24-38); PROTHROMBIN TIME PATIENT 20.1 SEC (11.7-14.0)
[2017-06-20 16:50] LABS: ANION GAP 10 (6-14); BLOOD UREA NITROGEN 24 mg/dL (8-26); CALCIUM 8.7 mg/dL (8.5-10.1); CARBON DIOXIDE 27 mmol/L (21-32); CHLORIDE 105 mmol/L (98-107); CREATININE 1.2 mg/dL (0.7-1.3); GFR 60.6; GLUCOSE 90 mg/dL (70-99); POTASSIUM 4.2 mmol/L (3.5-5.1); SODIUM 142 mmol/L (136-145)
== END 2017-06-20 17:21 | disposition home or self-care (01) ==
LOC: ER 15:49
DX: K64.9 Unspecified hemorrhoids (principal); I48.2 Chronic atrial fibrillation; M19.90 Unspecified osteoarthritis, unspecified site; K21.9 Gastro-esophageal reflux disease without esophagitis; I10 Essential (primary) hypertension; F10.20 Alcohol dependence, uncomplicated; Z90.79 Acquired absence of other genital organ(s); Z79.01 Long term (current) use of anticoagulants
CPT/HCPCS: 36415; 80048; 85025; 85610; 85730; 96360; 99284-25; J7040

== ENCOUNTER 2018-02-01 22:17 | Emergency (ER) | payer MEDICARE, OTHER ==
[~2018-02-01] VITALS: Ht 175.3 cm; Wt 88.5 kg
[~2018-02-01 22:17] MED LIST changes: +CELE200C PO; +METO-239 PO; +RIVA20TA2 PO
--- NOTE | 2018-02-01 22:44 | PHYS DOC ---
Past Medical History Past Medical History: A-Fib, Arthritis, Cancer, GERD, Hypertension Additional Past Medical Histor: prostate cancer Past Surgical History: Appendectomy, Other Additional Past Surgical Histo: prostate removed Alcohol Use: Heavy Drug Use: Marijuana Adult General Chief Complaint Chief Complaint: FLANK PAIN HPI HPI Patient is a 67 year old male with history of A. fib, hypertension, acid reflex , who presents today complaining of 8-1/2 sharp intermittent right flank pain that has been going on for 5 days. Patient states the pain is similar to the last time he had a kidney stone. Patient denies any nausea vomiting. Denies any urgency frequency or dysuria. Denies any hematuria. Review of Systems Review of Systems Constitutional: Denies fever or chills [] Eyes: Denies change in visual acuity, redness, or eye pain [] HENT: Denies nasal congestion or sore throat [] Respiratory: Denies cough or shortness of breath [] Cardiovascular: No additional information not addressed in HPI [] GI: Denies abdominal pain, nausea, vomiting, bloody stools or diarrhea [] : Reports right flank pain. Denies dysuria or hematuria [] Musculoskeletal: Denies back pain or joint pain [] Integument: Denies rash or skin lesions [] Neurologic: Denies headache, focal weakness or sensory changes [] All other systems were reviewed and found to be within normal limits, except as documented in this note. Current Medications Current Medications Current Medications Medications (Trade) Dose Ordered Sig/[facility] Start Time Stop Time Status Last Admin Dose Admin Ketorolac Tromethamine (Toradol 30mg Vial) 30 mg 1X ONCE 02/01/18 23:00 02/01/18 23:01 DC 02/01/18 23:07 30 MG Sodium Chloride 1,000 ml @ 1,000 mls/hr 1X ONCE 02/01/18 22:45 02/01/18 23:44 DC 02/01/18 23:08 1,000 MLS/HR Tamsulosin HCl (Flomax) 0.4 mg 1X ONCE 02/01/18 23:00 02/01/18 23:01 DC 02/01/18 23:07 0.4 MG Allergies Allergies Allergies Coded Allergies Type Severity Reaction Last Updated Verified No Known Drug Allergies 06/20/17 No Physical Exam Physical Exam Constitutional: Well developed, well nourished, no acute distress, non-toxic appearance. [] HENT: Normocephalic, atraumatic, bilateral external ears normal, oropharynx moist, no oral exudates, nose normal. [] Eyes: PERRLA, EOMI, conjunctiva normal, no discharge. [] Neck: Normal range of motion, no tenderness, supple, no stridor. [] Cardiovascular:Heart rate regular rhythm, no murmur [] Lungs & Thorax: Bilateral breath sounds clear to auscultation [] Abdomen: Bowel sounds normal, soft, no tenderness, no masses, no pulsatile masses. [] Skin: Warm, dry, no erythema, no rash. [] Back: No tenderness, mild right CVA tenderness. [] Extremities: No tenderness, no cyanosis, no clubbing, ROM intact, no edema. [] Neurologic: Alert and oriented X 3, normal motor function, normal sensory function, no focal deficits noted. [] Psychologic: Affect normal, judgement normal, mood normal. [] Current Patient Data Vital Signs Vital Signs Date Time Temp Pulse Resp B/P (MAP) Pulse Ox O2 Delivery O2 Flow Rate FiO2 02/01/18 22:30 98.5 59 18 189/103 (131) 96 Room Air 98.5 Lab Values Laboratory Tests Test 02/01/18 22:49 02/01/18 23:00 Urine Collection Type Unknown Urine Color Yellow Urine Clarity Cloudy Urine pH 7.5 Urine Specific [place] 1.015 Urine Protein Negative mg/dL (NEG-TRACE) Urine Glucose (UA) Negative mg/dL (NEG) Urine Ketones (Stick) Negative mg/dL (NEG) Urine Blood Negative (NEG) Urine Nitrite Negative (NEG) Urine Bilirubin Negative (NEG) Urine Urobilinogen Dipstick 0.2 mg/dL (0.2 mg/dL) Urine Leukocyte Esterase Negative (NEG) Urine RBC 0 /HPF (0-2) Urine WBC 0 /HPF (0-4) Urine Squamous Epithelial Cells None /LPF Urine Amorphous Sediment Present /HPF Urine Bacteria 0 /HPF (0-FEW) White Blood Count 8.7 x10^3/uL (4.0-11.0) Red Blood Count 4.54 x10^6/uL (4.30-5.70) Hemoglobin 14.8 g/dL (13.0-17.5) Hematocrit 41.8 % (39.0-53.0) Mean Corpuscular Volume 92 fL (79-100) Mean Corpuscular Hemoglobin 33 pg (25-35) Mean Corpuscular Hemoglobin Concent 35 g/dL (31-37) Red Cell Distribution Width 12.5 % (11.5-14.5) Platelet Count 202 x10^3/uL (140-400) Neutrophils (%) (Auto) 75 % (31-73) H Lymphocytes (%) (Auto) 12 % (24-48) L Monocytes (%) (Auto) 9 % (0-9) Eosinophils (%) (Auto) 4 % (0-3) H Basophils (%) (Auto) 1 % (0-3) Neutrophils # (Auto) 6.5 x10^3uL (1.8-7.7) Lymphocytes # (Auto) 1.1 x10^3/uL (1.0-4.8) Monocytes # (Auto) 0.8 x10^3/uL (0.0-1.1) Eosinophils # (Auto) 0.3 x10^3/uL (0.0-0.7) Basophils # (Auto) 0.0 x10^3/uL (0.0-0.2) Sodium Level 141 mmol/L (136-145) Potassium Level 3.8 mmol/L (3.5-5.1) Chloride Level 103 mmol/L (98-107) Carbon Dioxide Level 31 mmol/L (21-32) Anion Gap 7 (6-14) Blood Urea Nitrogen 23 mg/dL (8-26) Creatinine 1.2 mg/dL (0.7-1.3) Estimated GFR (Cockcroft-Gault) 60.6 BUN/Creatinine Ratio 19 (6-20) Glucose Level 100 mg/dL (70-99) H Calcium Level 9.3 mg/dL (8.5-10.1) Total Bilirubin 0.5 mg/dL (0.2-1.0) Aspartate Amino Transferase (AST) 16 U/L (15-37) Alanine Aminotransferase (ALT) 27 U/L (16-63) Alkaline Phosphatase 135 U/L (46-116) H Total Protein 6.8 g/dL (6.4-8.2) Albumin 3.8 g/dL (3.4-5.0) Albumin/Globulin Ratio 1.3 (1.0-1.7) Lipase 167 U/L (73-393) Laboratory Tests 02/01/18 23:00 Laboratory Tests 02/01/18 23:00 EKG EKG [] Radiology/Procedures Radiology/Procedures []PROCEDURE: CT ABDOMEN PELVIS WO CONTRAST EXAM: CT ABDOMEN/PELVIS WITHOUT CONTRAST. HISTORY: Right flank pain, renal stones. TECHNIQUE: Computed tomography of the abdomen and pelvis was performed without intravenous contrast. COMPARISON: 06/21/2017. FINDINGS: Lung windows through the visualized portions of the bases reveal mild atelectasis. Bone windows reveal no suspicious lesions. There is a gallstone in the gallbladder neck. The gallbladder is decompressed without pericholecystic inflammation. The pancreas, spleen and liver are unremarkable without contrast. A small nodule in the medial limb of the left adrenal gland measures 0 Hounsfield units in attenuation consistent with a benign adenoma and is stable at 8 mm. The right adrenal gland is unremarkable. Cysts in the right kidney measure up to 3.6 x 2.8 cm. Left kidney is unremarkable. Small calculi in the right kidney measure 2 mm. Other calcific densities in the interpolar region may be milk of calcium or rim calcification along a peripelvic cyst. There are no ureteral calculi bilaterally. There are no pathologically enlarged lymph nodes. The prostate is surgically absent. Changes of pelvic lymph node dissection are noted. A bladder diverticula on the left measures 2.7 cm. There is some wall thickening of the distal rectum. This may peristalsis but is indeterminate. There is no evidence of appendicitis. There is no small bowel obstruction. IMPRESSION: 1. Small right renal calculi measure up to 2 mm. No ureteral calculus. 2. Wall thickening of the distal rectum may reflect peristalsis. Correlate with colonoscopic and physical exam findings to exclude a mass. 3. 8 mm benign left adrenal adenoma. 4. Cholelithiasis. *One or more of the following individualized dose reduction techniques were utilized for this examination: 1. Automated exposure control. 2. Adjustment of the mA and/or kV according to patient size. 3. Use of iterative reconstruction technique. Electronically signed by: Wilian Soares MD (02/01/2018 11:52 PM) [facility] DICTATED and SIGNED BY: DENNISE SOARES MD DATE: 02/01/18 5925 Course & Med Decision Making Course & Med Decision Making Pertinent Labs and Imaging studies reviewed. (See chart for details) This is a 67-year-old male patient presenting to the ED today with complaints of right flank pain for 5 days, history of kidney stones, CBC CMP lipase with no acute findings, urine analysis is negative for infection. CT of the abdomen and pelvic was noted for 2 mm right renal calculi. No ureteral calculus. Wall thickening of the distal rectum may reflect peristalsis. Correlate with colonoscopic and physical exam findings to exclude a mass. 8 mm benign left adrenal adenoma. Cholelithiasis. Rectal exam was performed, no rectal mass was noted. Patient was discharged with hydrocodone and Flomax. Follow-up with PCP in the course of this week or next week. Provided return precautions and discharged in stable condition. Dragon Disclaimer Dragon Disclaimer This electronic medical record was generated, in whole or in part, using a voice recognition dictation system. Departure Departure Impression: Primary Impression: Right flank pain Additional Impression: Kidney stone on right side Disposition: 01 HOME, SELF-CARE Condition: STABLE Referrals: MARY ROPER MD (PCP) Follow-up in one week Patient Instructions: Flank Pain, [id number], Kidney Stones, [id number] Additional Instructions: You were evaluated in the emergency room for flank pain. You have a 2 mm kidney stone in your right kidney. Take the prescribed medications as ordered. Follow- up with your doctor in 1-2 weeks. Come back to the ED at any point symptoms worsen. Scripts Tamsulosin Hcl (FLOMAX) 0.4 Mg Cap.er.24h 1 CAP PO DAILY, #6 CAP 0 Refills Prov: SANGEETHA REVELES APRN 02/02/18 Hydrocodone/Apap 5-325 (NORCO 5-325 TABLET) 1 Each Tablet 1 TAB PO Q6HRS, #12 TAB Prov: SANGEETHA REVELES APRN 02/02/18 Problem Qualifiers SANGEETHA REVELES APRN Feb 01, 2018 22:44
[2018-02-01] MEDS ORDERED: IV NORMAL SALINE 1000ML BAG 1,000 ML IV ONE (22:45)
[2018-02-01 22:55] LABS: BILIRUBIN,URINE NEGATIVE (NEG); CLARITY,URINE CLOUDY; COLOR,URINE YELLOW; NITRITE,URINE NEGATIVE (NEG); PH,URINE 7.5; PROTEIN,URINE NEGATIVE (NEG-TRACE); UROBILINOGEN,URINE 0.2 mg/dL (0.2 mg/dL)
[2018-02-01] MEDS ORDERED: TAMSULOSIN 0.4 MG CAP.ER.24H. PO ONE (23:00)
[2018-02-01] MEDS ORDERED: KETOROLAC 30 MG/ML VIAL. IV ONE (23:00)
[2018-02-01 23:02] LABS: AMORPHOUS SEDIMENT,UR PRESENT /HPF; BACTERIA,URINE 0 /HPF (0-FEW); RBC,URINE 0 /HPF (0-2); WBC,URINE 0 /HPF (0-4)
[2018-02-01 23:09] LABS: BASO % 1 % (0-3); EOS # 0.3 x10^3/uL (0.0-0.7); EOS % 4 % (0-3); HEMATOCRIT 41.8 % (39.0-53.0); HEMOGLOBIN 14.8 g/dL (13.0-17.5); LYMPH # 1.1 x10^3/uL (1.0-4.8); LYMPH % 12 % (24-48); MEAN CORPUSCULAR HEMOGLOBIN 33 pg (25-35); MEAN CORPUSCULAR HGB CONC 35 g/dL (31-37); MEAN CORPUSCULAR VOLUME 92 fL (79-100); MONO # 0.8 x10^3/uL (0.0-1.1); MONO % 9 % (0-9); NEUT # 6.5 x10^3uL (1.8-7.7); NEUT % 75 % (31-73); PLATELET COUNT 202 x10^3/uL (140-400); RED BLOOD COUNT 4.54 x10^6/uL (4.30-5.70); RED CELL DISTRIBUTION WIDTH 12.5 % (11.5-14.5); WHITE BLOOD COUNT 8.7 x10^3/uL (4.0-11.0)
[2018-02-01 23:23] LABS: CALCIUM 9.3 mg/dL (8.5-10.1); CREATININE 1.2 mg/dL (0.7-1.3); GFR 60.6; POTASSIUM 3.8 mmol/L (3.5-5.1)
[2018-02-01 23:28] LABS: ALBUMIN 3.8 g/dL (3.4-5.0); ALBUMIN/GLOBULIN RATIO 1.3 (1.0-1.7); TOTAL BILIRUBIN 0.5 mg/dL (0.2-1.0); TOTAL PROTEIN 6.8 g/dL (6.4-8.2)
--- NOTE | 2018-02-01 23:55 | RAD ---
EXAM: CT ABDOMEN/PELVIS WITHOUT CONTRAST. HISTORY: Right flank pain, renal stones. TECHNIQUE: Computed tomography of the abdomen and pelvis was performed without intravenous contrast. COMPARISON: 06/21/2017. FINDINGS: Lung windows through the visualized portions of the bases reveal mild atelectasis. Bone windows reveal no suspicious lesions. There is a gallstone in the gallbladder neck. The gallbladder is decompressed without pericholecystic inflammation. The pancreas, spleen and liver are unremarkable without contrast. A small nodule in the medial limb of the left adrenal gland measures 0 Hounsfield units in attenuation consistent with a benign adenoma and is stable at 8 mm. The right adrenal gland is unremarkable. Cysts in the right kidney measure up to 3.6 x 2.8 cm. Left kidney is unremarkable. Small calculi in the right kidney measure 2 mm. Other calcific densities in the interpolar region may be milk of calcium or rim calcification along a peripelvic cyst. There are no ureteral calculi bilaterally. There are no pathologically enlarged lymph nodes. The prostate is surgically absent. Changes of pelvic lymph node dissection are noted. A bladder diverticula on the left measures 2.7 cm. There is some wall thickening of the distal rectum. This may peristalsis but is indeterminate. There is no evidence of appendicitis. There is no small bowel obstruction. IMPRESSION: 1. Small right renal calculi measure up to 2 mm. No ureteral calculus. 2. Wall thickening of the distal rectum may reflect peristalsis. Correlate with colonoscopic and physical exam findings to exclude a mass. 3. 8 mm benign left adrenal adenoma. 4. Cholelithiasis. *One or more of the following individualized dose reduction techniques were utilized for this examination: 1. Automated exposure control. 2. Adjustment of the mA and/or kV according to patient size. 3. Use of iterative reconstruction technique. Electronically signed by: Wilian Soares MD (02/01/2018 11:52 PM) [facility]
[2018-02-02 00:34] VITALS: BP 151/93
[2018-02-02] MEDS ORDERED: TAMS0.4C97 PO (00:40)
[2018-02-02] MEDS ORDERED: HYDR-971 PO (00:40)
== END 2018-02-02 00:55 | disposition home or self-care (01) ==
LOC: ER 22:17
DX: N20.0 Calculus of kidney (principal); I48.91 Unspecified atrial fibrillation; K21.9 Gastro-esophageal reflux disease without esophagitis; I10 Essential (primary) hypertension; F10.20 Alcohol dependence, uncomplicated; Z90.89 Acquired absence of other organs
CPT/HCPCS: 36415; 74176; 80053; 81001; 83690; 85025; 96374; 99285; J1885; J7030

== ENCOUNTER → 2018-02-24 | Outpatient (CLI) | payer MEDICARE, OTHER ==
[2018-02-02 00:34] VITALS: BP 151/93
[~2018-02-24] MED LIST changes: +HYDR-971 PO; +TAMS0.4C97 PO
--- NOTE | 2018-02-24 10:18 | CARD ---
MR#: [id number] Date of Study: 02/24/2018 Ordering Physician: SOHAN PORTER, Referring Physician: SOHAN PORTER, Tech: Della Be WYATT APPROVED REPORT EXAM: Two-dimensional and M-mode echocardiogram with Doppler and color Doppler. Other Information Quality : Good Rhythm : Bradycardia INDICATION Atrial Fibrillation 2D DIMENSIONS RVDd3.2 (2.9-3.5cm)Left Atrium(2D)3.6 (1.6-4.0cm) IVSd1.2 (0.7-1.1cm)Aortic Root(2D)3.1 (2.0-3.7cm) LVDd4.8 (3.9-5.9cm)LVOT Diameter2.3 (1.8-2.4cm) PWd1.1 (0.7-1.1cm)LVDs3.4 (2.5-4.0cm) FS (%) 29.5 %SV61.9 ml LVEF(%)56.4 (>50%) Aortic Valve AoV Peak Russell.136.0cm/sAoV VTI29.3cm AO Peak GR.7.4mmHgLVOT Peak Russell.106.4cm/s AO Mean GR.4mmHgAVA (VMAX)3.31cm2 KETURAH (VTI)3.81tm0MA P 1/2 Hvsr8041sm Mitral Valve MV E Trauxykv68.4cm/sMV DECEL TQNP075ha MV A Eufrsczt43.7cm/sE/A Ratio0.8 Tricuspid Valve TR P. Blgwjvtg243qa/sRAP ONXYBIMY9xgJb TR Peak Gr.82oqCqPWYW72wiQj Pulmonary Vein S1 Xevhzhxc43.8cm/sD2 Tbqgelnx77.5cm/s LEFT VENTRICLE The left ventricle is normal size. There is mild asymmetric septal hypertrophy. The left ventricular systolic function is normal and the ejection fraction is within normal range. The Ejection Fraction i s 50-55%. There is normal LV segmental wall motion. Transmitral Doppler flow pattern is Grade I-abnor mal relaxation pattern. RIGHT VENTRICLE The right ventricle is normal size. The right ventricular systolic function is normal. ATRIA The left atrium size is normal. The right atrium size is normal. The interatrial septum is intact wit h no evidence for an atrial septal defect or patent foramen ovale as noted on 2-D or Doppler imaging. AORTIC VALVE The aortic valve is calcified but opens well. Doppler and Color Flow revealed trace to mild aortic re gurgitation. There is no significant aortic valvular stenosis. MITRAL VALVE The mitral valve is normal in structure and function. There is no evidence of mitral valve prolapse. There is no mitral valve stenosis. Doppler and Color-flow revealed mild mitral regurgitation. TRICUSPID VALVE The tricuspid valve is normal in structure and function. Doppler and Color Flow revealed trace tricus pid regurgitation. The PA pressure was estimated at 25 mmHg. There is no tricuspid valve stenosis. PULMONIC VALVE The pulmonary valve is normal in structure and function. Doppler and Color Flow revealed mild pulmoni c valvular regurgitation. There is no pulmonic valvular stenosis. GREAT VESSELS The aortic root is normal in size. The ascending aorta is normal in size. The IVC is dilated and jose apses >50% with inspiration. PERICARDIAL EFFUSION There is no evidence of significant pericardial effusion. Critical Notification Critical Value: No <Conclusion> The left ventricle is normal size. The left ventricular systolic function is normal and the ejection fraction is within normal range. The Ejection Fraction is 50-55%. There is no significant aortic valvular stenosis. Doppler and Color Flow revealed trace to mild aortic regurgitation. Doppler and Color-flow revealed mild mitral regurgitation. Doppler and Color Flow revealed trace tricuspid regurgitation. The PA pressure was estimated at 25 mmHg. Signed by : Mekhi Dempsey MD Electronically Approved : 02/24/2018 10:17:49
== END | disposition home or self-care (01) ==
LOC: ECHO 07:53
PROVIDERS: ATTEND Internal Medicine Cardiovascular Disease
DX: I08.0 Rheumatic disorders of both mitral and aortic valves (principal); I48.91 Unspecified atrial fibrillation
CPT/HCPCS: 93306

== ENCOUNTER 2018-10-25 12:16 | Emergency (ER) | payer MEDICARE, OTHER ==
[~2018-10-25] VITALS: Ht 177.8 cm; Wt 88.5 kg
[~2018-10-25 12:16] MED LIST changes: +HYDR-3164 PO; -HYDR-971 PO
[2018-10-25 12:20] VITALS: BP 132/79
--- NOTE | 2018-10-25 12:43 | PHYS DOC ---
Past Medical History Past Medical History: A-Fib, Arthritis, Cancer, GERD, Hypertension, Other Additional Past Medical Histor: prostate cancer Past Surgical History: Appendectomy, Tonsillectomy, Other Additional Past Surgical Histo: prostate removed,VARICOSE VEINS REMOVED Alcohol Use: Heavy Additional Information: PT REPORTS, "DRINKS 2 TO 3 SHOTS A DAY & 2 BEERS A DAY." Drug Use: Marijuana Adult General Chief Complaint Chief Complaint: KNEE SWELLING HPI HPI Patient is a 68 year old male with a history of varicose veins presents to the ED complaining of right knee pain times one week ago. Patient states last week he did a lot of work on a ladder while working on his house and then played softball. States that he's had pain to the right knee as well as right lower leg pain/swelling. Describes the pain as sharp. Rates the pain as 5 out of 10. Pain is worse in the morning and gets better as the day goes on. States that he took a line drive softball off his right knee at the beginning of the season. Denies chest pain, shortness of breath, nausea/vomiting, headache, dizziness, fever, traumatic injury, weakness or recent travel. Review of Systems Review of Systems Constitutional: Denies fever or chills [] Eyes: Denies change in visual acuity, redness, or eye pain [] HENT: Denies nasal congestion or sore throat [] Respiratory: Denies cough or shortness of breath [] Cardiovascular: No additional information not addressed in HPI [] GI: Denies abdominal pain, nausea, vomiting, bloody stools or diarrhea [] : Denies dysuria or hematuria [] Musculoskeletal: Complains of right knee and right lower leg pain/swelling. Denies back pain. [] Integument: Denies rash or skin lesions [] Neurologic: Denies headache, focal weakness or sensory changes [] All other systems were reviewed and found to be within normal limits, except as documented in this note. Allergies Allergies Allergies Coded Allergies Type Severity Reaction Last Updated Verified No Known Drug Allergies 06/20/17 No Physical Exam Physical Exam Constitutional: Well developed, well nourished, no acute distress, non-toxic appearance. [] HENT: Normocephalic, atraumatic Cardiovascular:Heart rate regular rhythm, no murmur [] Lungs & Thorax: Bilateral breath sounds clear to auscultation [] Abdomen: Bowel sounds normal, soft, no tenderness, no masses, no pulsatile masses. [] Skin: Warm, dry, no erythema, no rash. [] Back: No tenderness, no CVA tenderness. [] Extremities: mild right knee and lower leg tenderness/swelling. NV intact. Negative mcmurrays/lachmans. no cyanosis, no clubbing, ROM intact, no edema. [] Neurologic: Alert and oriented X 3, normal motor function, normal sensory f unction, no focal deficits noted. [] Psychologic: Affect normal, judgement normal, mood normal. [] Current Patient Data Vital Signs Vital Signs Date Time Temp Pulse Resp B/P (MAP) Pulse Ox O2 Delivery O2 Flow Rate FiO2 10/25/18 12:20 97.6 58 16 132/79 (96) 99 Room Air 97.6 EKG EKG [] Radiology/Procedures Radiology/Procedures []PROCEDURE: KNEE RIGHT 3V KNEE 3 VIEWS RIGHT Clinical Indication: Knee swelling and bruising x1 week. No known injury. Comparison: None. Findings: There is no acute fracture or dislocation. There is mild medial compartment narrowing. The patella is in anatomic position. There is prepatellar soft tissue swelling. There is no joint effusion. IMPRESSION: 1. No acute fracture. 2. Prepatellar soft tissue swelling. PROCEDURE: VENOUS LOWER EXTREMITY RIGHT RIGHT LOWER EXTREMITY ULTRASOUND WITH DOPPLER 10/25/2018 12:33 PM Clinical Information: Right knee pain and swelling. Comparison: None. Technique: Multiple grayscale, color Doppler, and spectral Doppler sonographic images of the lower extremity venous structures were obtained. Findings: The right common femoral, femoral, and popliteal veins exhibit normal compression, respiratory phasicity, and augmentation. No intraluminal thrombi are identified. Color Doppler flow is demonstrated in the right posterior tibial veins. Contralateral common femoral vein is patent. Greater saphenous vein is patent. Impression: 1. No evidence of deep venous thrombosis. Course & Med Decision Making Course & Med Decision Making Pertinent Labs and Imaging studies reviewed. (See chart for details) []Discussed imaging findings with patient. Patient's pain improved in the ED. Patient able to ambulate without assistance. Discussed symptomatic treatment and follow-up with orthopedics outpatient if symptoms persist. Provided contact information/education. Discussed reasons to return to the ED. Patient understands and agrees with plan. Dragon Disclaimer Dragon Disclaimer This electronic medical record was generated, in whole or in part, using a voice recognition dictation system. Departure Departure Impression: Primary Impression: Knee sprain Disposition: HOME, SELF-CARE Condition: IMPROVED Referrals: MARY ROPER MD (PCP) Patient Instructions: Knee Pain, Knee Sprain SANDRITA BARTLETT Oct 25, 2018 12:43
--- NOTE | 2018-10-25 13:24 | RAD ---
RIGHT LOWER EXTREMITY ULTRASOUND WITH DOPPLER 10/25/2018 12:33 PM Clinical Information: Right knee pain and swelling. Comparison: None. Technique: Multiple grayscale, color Doppler, and spectral Doppler sonographic images of the lower extremity venous structures were obtained. Findings: The right common femoral, femoral, and popliteal veins exhibit normal compression, respiratory phasicity, and augmentation. No intraluminal thrombi are identified. Color Doppler flow is demonstrated in the right posterior tibial veins. Contralateral common femoral vein is patent. Greater saphenous vein is patent. Impression: 1. No evidence of deep venous thrombosis. Electronically signed by: Blank Castaneda MD (10/25/2018 1:21 PM) [facility]
--- NOTE | 2018-10-25 13:42 | RAD ---
KNEE 3 VIEWS RIGHT Clinical Indication: Knee swelling and bruising x1 week. No known injury. Comparison: None. Findings: There is no acute fracture or dislocation. There is mild medial compartment narrowing. The patella is in anatomic position. There is prepatellar soft tissue swelling. There is no joint effusion. IMPRESSION: 1. No acute fracture. 2. Prepatellar soft tissue swelling. Electronically signed by: Mark Becker MD (10/25/2018 1:39 PM) [id number]
== END 2018-10-25 14:11 | disposition home or self-care (01) ==
LOC: ER 12:16
DX: S83.91XA Sprain of unspecified site of right knee, initial encounter (principal); M79.661 Pain in right lower leg; I48.91 Unspecified atrial fibrillation; K21.9 Gastro-esophageal reflux disease without esophagitis; I10 Essential (primary) hypertension; F10.20 Alcohol dependence, uncomplicated; Y90.9 Presence of alcohol in blood, level not specified; X50.9XXA Other and unspecified overexertion or strenuous movements or postures, initial encounter; Y93.89 Activity, other specified; Y92.89 Other specified places as the place of occurrence of the external cause; Y99.8 Other external cause status
CPT/HCPCS: 73562; 93971; 99284

== ENCOUNTER → 2018-12-28 | Outpatient (CLI) | payer MEDICARE, OTHER ==
--- NOTE | 2018-12-30 13:07 | CARD ---
MR#: [id number] Date of Study: 12/28/2018 Ordering Physician: SOHAN ESTES, Referring Physician: SOHAN ESTES, Tech: Adelita Jerome APPROVED REPORT EXAM: Two-dimensional and M-mode echocardiogram with Doppler and color Doppler. Other Information Quality : GoodHR: 53bpm INDICATION Atrial Fibrillation RISK FACTORS Hypertension 2D DIMENSIONS RVDd3.3 (2.9-3.5cm)Left Atrium(2D)4.0 (1.6-4.0cm) IVSd1.4 (0.7-1.1cm)Aortic Root(2D)3.5 (2.0-3.7cm) LVDd5.3 (3.9-5.9cm)LVOT Diameter2.2 (1.8-2.4cm) PWd1.3 (0.7-1.1cm)LVDs3.5 (2.5-4.0cm) FS (%) 34.4 %SV85.9 ml LVEF(%)63.1 (>50%) Aortic Valve AoV Peak Russell.153.6cm/sAoV VTI25.9cm AO Peak GR.9.4mmHgLVOT Peak Russell.114.8cm/s LVOT VTI 25.61cmAO Mean GR.4mmHg KETURAH (VMAX)2.32ce2HIF (VTI)3.85cm2 AI P 1/2 Zmnf749es Mitral Valve MV E Qtxhmflz63.4cm/sMV DECEL LHSQ402na MV A Nxiahncb74.2cm/sMV FTB97rj E/A Ratio0.9MVA (PHT)3.38cm2 TDI E/Lateral E'9.8E/Medial E'9.7 Pulmonary Valve PV Peak Hxcdukef438.8cm/sPV Peak Grad.5mmHg Tricuspid Valve TR P. Azehewxz244jc/sRAP EDIXGETV9jaLw TR Peak Gr.31tmPvKVQE67bvCy Pulmonary Vein S1 Wsodasrl22.5cm/sD2 Gojqpzso71.1cm/s PVa spwgbpxr597mkhb LEFT VENTRICLE The left ventricle is normal size. There is mild to moderate concentric left ventricular hypertrophy. The left ventricular systolic function is normal and the ejection fraction is within normal range. T he Ejection Fraction is >55%. There is normal LV segmental wall motion. Transmitral Doppler flow joss tessa is Grade I-abnormal relaxation pattern. RIGHT VENTRICLE The right ventricle is normal size. There is normal right ventricular wall thickness. The right ventr icular systolic function is normal. ATRIA The left atrium is borderline dilated. The right atrium is borderline dilated. The interatrial septum is intact with no evidence for an atrial septal defect or patent foramen ovale as noted on 2-D or Do ppler imaging. AORTIC VALVE The aortic valve is normal in structure and function. Doppler and Color Flow revealed mild aortic reg urgitation. There is no significant aortic valvular stenosis. MITRAL VALVE The mitral valve is normal in structure and function. There is no evidence of mitral valve prolapse. There is no mitral valve stenosis. Doppler and Color-flow revealed trace to mild mitral regurgitation . TRICUSPID VALVE The tricuspid valve is normal in structure and function. Doppler and Color Flow revealed trace tricus pid regurgitation with an estimated PAP of 37 mmHg. There is no tricuspid valve prolapse or vegetatio n. There is no tricuspid valve stenosis. PULMONIC VALVE The pulmonic valve is not well visualized. Doppler and Color Flow revealed trace pulmonic valvular re gurgitation. There is no pulmonic valvular stenosis. GREAT VESSELS The aortic root is normal in size. The IVC is dilated and collapses >50% with inspiration. PERICARDIAL EFFUSION There is no evidence of significant pericardial effusion. Critical Notification Critical Value: No <Conclusion> The left ventricular systolic function is normal and the ejection fraction is within normal range. Th e Ejection Fraction is >55%. There is normal LV segmental wall motion. Signed by : Sohan Estes, Electronically Approved : 12/28/2018 15:26:44
== END | disposition home or self-care (01) ==
LOC: ECHO 12:48
PROVIDERS: ATTEND Internal Medicine Cardiovascular Disease
DX: I48.91 Unspecified atrial fibrillation (principal)
CPT/HCPCS: 93306

== ENCOUNTER → 2019-12-02 | Outpatient (CLI) | payer MEDICARE, OTHER ==
[2019-12-02 08:55] LABS: BASO % 1 % (0-3); EOS # 0.4 x10^3/uL (0.0-0.7); EOS % 7 % (0-3); HEMATOCRIT 41.7 % (39.0-53.0); HEMOGLOBIN 14.2 g/dL (13.0-17.5); LYMPH # 1.2 x10^3/uL (1.0-4.8); LYMPH % 22 % (24-48); MEAN CORPUSCULAR HEMOGLOBIN 31 pg (25-35); MEAN CORPUSCULAR HGB CONC 34 g/dL (31-37); MEAN CORPUSCULAR VOLUME 91 fL (79-100); MONO # 0.5 x10^3/uL (0.0-1.1); MONO % 9 % (0-9); NEUT # 3.2 x10^3/uL (1.8-7.7); NEUT % 61 % (31-73); PLATELET COUNT 231 x10^3/uL (140-400); RED CELL DISTRIBUTION WIDTH 12.4 % (11.5-14.5); WHITE BLOOD COUNT 5.2 x10^3/uL (4.0-11.0)
[2019-12-02 09:14] LABS: ALBUMIN 3.7 g/dL (3.4-5.0); ALBUMIN/GLOBULIN RATIO 1.3 (1.0-1.7); CALCIUM 8.6 mg/dL (8.5-10.1); CREATININE 1.2 mg/dL (0.7-1.3); GFR 60.2; POTASSIUM 3.9 mmol/L (3.5-5.1); TOTAL BILIRUBIN 0.7 mg/dL (0.2-1.0); TOTAL PROTEIN 6.5 g/dL (6.4-8.2)
[2019-12-02 09:33] LABS: CHOLESTEROL/HDL RATIO 2.9
== END ==
LOC: LAB 08:12
PROVIDERS: ATTEND Internal Medicine Cardiovascular Disease
DX: I48.91 Unspecified atrial fibrillation (principal); I10 Essential (primary) hypertension
CPT/HCPCS: 36415; 80053; 80061; 83721; 85025

== ENCOUNTER → 2019-12-14 | Outpatient (CLI) | payer MEDICARE, OTHER ==
--- NOTE | 2019-12-15 08:55 | RAD ---
EXAM: Left first toe 3 views. HISTORY: First toe pain. COMPARISON: None. FINDINGS: There is moderate osteoarthritis at the first metatarsophalangeal joint. It is mild at the first interphalangeal joint. No fractures are identified. Atherosclerotic calcifications are noted. IMPRESSION: 1. Moderate first metatarsophalangeal osteoarthritis. Electronically signed by: Wilian Soares MD (12/15/2019 8:53 AM) [id number]
== END | disposition home or self-care (01) ==
LOC: RAD 09:54
PROVIDERS: ATTEND Family Medicine
DX: M19.072 Primary osteoarthritis, left ankle and foot (principal)
CPT/HCPCS: 73660

== ENCOUNTER → 2020-06-12 | Outpatient (CLI) | payer MEDICARE, OTHER ==
[~2020-06-12] MED LIST changes: +LISI10TA16 PO; -LISI10TA2 PO
--- NOTE | 2020-06-12 13:07 | CARD ---
MR#: [id number] Date of Study: 06/12/2020 Ordering Physician: SOHAN PORTER, Referring Physician: SOHAN PORTER, Tech: APPROVED REPORT Procedure Report: Loop recorder implantation Diagnosis: Afib/Syncope Details: After appropriate informed consent the left chest was prepped and draped in usual sterile fashion. 2 0 mL of 1% lidocaine was instilled in the parasternal space along the nipple line. Next, a 0.5 inch incision was made with a scalpel and a subcutaneous tunnel created for implantation of loop recorder. Next a Stitcher bio monitor 3 loop recorder with serial #[id number] was implanted without difficulty . The incision was then closed with 1 absorbable suture and dressed with Steri-Strips and sterile dr essing. Excellent monitoring parameters were obtained. Patient's rhythm was noted to be in sinus [facility]. <Conclusion> 1. Successful implantation of a loop recorder for monitoring of atrial fibrillation and syncope. Signed by : Sohan Porter, Electronically Approved : 06/12/2020 13:06:46
== END | disposition home or self-care (01) ==
LOC: LINQ 10:08
PROVIDERS: ATTEND Internal Medicine Cardiovascular Disease
DX: I48.91 Unspecified atrial fibrillation (principal); R55 Syncope and collapse; E78.00 Pure hypercholesterolemia, unspecified; I10 Essential (primary) hypertension; K21.9 Gastro-esophageal reflux disease without esophagitis; M19.90 Unspecified osteoarthritis, unspecified site; Z87.891 Personal history of nicotine dependence; Z79.899 Other long term (current) drug therapy; Z98.890 Other specified postprocedural states; Z72.89 Other problems related to lifestyle
CPT/HCPCS: 33285; C1764

== ENCOUNTER → 2020-06-28 | Outpatient (CLI) | payer MEDICARE, OTHER ==
--- NOTE | 2020-06-28 13:34 | CARD ---
MR#: [id number] Date of Study: 06/28/2020 Ordering Physician: SOHAN PORTER, Referring Physician: SOHAN PORTER, Tech: Chantelle Coppola [facility] APPROVED REPORT EXAM: Two-dimensional and M-mode echocardiogram with Doppler and color Doppler. Other Information Quality : AverageHR: 52bpm Rhythm : NSR INDICATION Atrial Fibrillation 2D DIMENSIONS RVDd3.7 (2.9-3.5cm)Left Atrium(2D)3.4 (1.6-4.0cm) IVSd1.3 (0.7-1.1cm)Aortic Root(2D)3.0 (2.0-3.7cm) LVDd5.1 (3.9-5.9cm)LVOT Diameter2.4 (1.8-2.4cm) PWd1.2 (0.7-1.1cm)LVDs3.2 (2.5-4.0cm) FS (%) 36.4 %SV80.6 ml LVEF(%)65.8 (>50%) Aortic Valve AoV Peak Russell.135.0cm/sAoV VTI25.4cm AO Peak GR.7.3mmHgLVOT Peak Russell.110.8cm/s AO Mean GR.3mmHgAVA (VMAX)3.60cm2 Mitral Valve MV E Seosmpzj91.5cm/sMV DECEL JQGV449ks MV A Cgxqjdfl38.2cm/sE/A Ratio0.7 Pulmonary Valve PV Peak Wgvxtbsp744.8cm/s Tricuspid Valve TR P. Aolhopar374tz/sTR Peak Gr.22mmHg Pulmonary Vein S1 Vocfwedn97.5cm/sD2 Cdxntfhx82.9cm/s PVa oreszybs510ngww LEFT VENTRICLE The left ventricle is normal size. There is borderline to mild concentric left ventricular hypertroph y. The left ventricular systolic function is normal. The ejection fraction is 60%. There is normal LV segmental wall motion. The left ventricular diastolic function and filling is normal for age. RIGHT VENTRICLE The right ventricle is normal size. There is normal right ventricular wall thickness. The right ventr icular systolic function is normal. ATRIA The left atrium size is normal. The right atrium size is normal. The interatrial septum is intact wit h no evidence for an atrial septal defect or patent foramen ovale as noted on 2-D or Doppler imaging. AORTIC VALVE The aortic valve is normal in structure and function. Doppler and Color Flow revealed mild aortic reg urgitation. There is no significant aortic valvular stenosis. MITRAL VALVE The mitral valve is normal in structure and function. There is no evidence of mitral valve prolapse. There is no mitral valve stenosis. Doppler and Color-flow revealed mild mitral regurgitation. TRICUSPID VALVE The tricuspid valve is normal in structure and function. Doppler and Color Flow revealed trace tricus pid regurgitation. Estimated PAP 40 mmHg. There is no tricuspid valve stenosis. PULMONIC VALVE The pulmonary valve is normal in structure and function. Doppler and Color Flow revealed mild pulmoni c valvular regurgitation. GREAT VESSELS The aortic root is normal in size. The ascending aorta is normal in size. The IVC is normal in size a nd collapses >50% with inspiration. PERICARDIAL EFFUSION There is no evidence of significant pericardial effusion. Critical Notification Critical Value: No <Conclusion> The left ventricular systolic function is normal. The ejection fraction is 60%. There is normal LV segmental wall motion. Mild mitral regurgitation. Trace tricuspid regurgitation. Estimated PAP 40 mmHg. There is no evidence of significant pericardial effusion. Signed by : Chance Witt, Electronically Approved : 06/28/2020 13:33:44
--- NOTE | 2020-06-28 15:27 | RAD ---
MR#: [id number] Date of Study: 06/28/2020 Ordering Physician: SOHAN PORTER, Referring Physician: KEITH LANDEROS Tech: RT Farhad (R) (N) APPROVED REPORT Test Type: Exercise Stress Nurse/Tech: Piedad Jansen RN Test Indications: Paroxysmal A-fib,shortness of air Cardiac History: Hypertension Medications: See Electronic Medical Record Medical History: See Electronic Medical Record Resting ECG: SB Resting Heart Rate: 49 bpm Resting Blood Pressure: 165/93mmHg Pretest Chest Pain: No chest pain Nurse/Tech Notes S1,S2 and lungs clear to auscultation. Consent: The procedure was explained to the patient in lay terms. Informed consent was witnessed. Sergey eout was entered into [employer]. History and Stress Test performed by RT Farhad (R) (N) Stress Symptoms Dyspnea POST EXERCISE Reason for Termination: Reached target heart rate, Fatigue Target HR: Yes Max HR: 138 bpm 107% of Maximum Predicted HR: 128 bpm Exercise duration: 8:12 min:sec, 3 Stage Exercise capacity: 10.0METs Max Blood Pressure: 177/94mmHg Blood Pressure response to exercise: Normal blood pressure response during stress. Heart Rate response to exercise: WNL Chest Pain: No. Arrhythmia: No. ST Change: No. INTERPRETATION Stress EKG Conclusion: Baseline EKG showed sinus rhythm. No ischemic changes at peak stress. No arr hythmias. Imaging Protocol IMAGE PROTOCOL: Rest Tc-99m/stress Tc-99m 1 day Rest: Stress: Viability: Radiopharm.Tc99m JfgzstymgUa71t Sestamibi Rjtc74rPt 32mCi Duration 15min. 15min. Img Date 06/28/2020 06/28/2020 Inj-Img Jnyz03zcl. 60min. Rest Admin Site:IV - Right AntecubitalAdministrator:RT Farhad (Nena)(N) Stress Admin Site: IV - Right AntecubitalAdministrator: RT Farhad (Nena)(N) STRESS DATA End Diast. Vol.125.0mlAv. Heart Rate67.0bpm End Syst. Vol.32.0mlCO Index BSA0.0L/min Myocardial Hifg479.0gEject. Qqczrmay13.0% Stress Rates Pk. Fill Rate2.49EDV/secLVtime Pk. Fill 125.44msec Pk. Empty Rate4.13ESV/secLVtime Pk. Ulznk647.68msec 1/3 Pk. Fill1.74EDV/sec Stress Scores Regional WT0.00Summed WT0.00 Regional WM0.00Summed WM0.00 Study quality was good. Left Ventricular size was Normal at Rest and Stress. Lung uptake was . Left Ventricular ejection fraction is 70%. The rest and stress images show normal perfusion, normal contraction and thickening. LV Perf. Quant 17 Seg. SSS0.00 17 Seg. SRS0.00 17 Seg. SDS0.00 Stress Defect Extent (% LAD)0.00Rest Defect Extent (% LAD)0.00Rev. Defect Extent (% LAD)0.00 Stress Defect Extent (% LCX) 0.00Rest Defect Extent (% LCX)0.00Rev. Defect Extent (% LCX)0.00 Stress Defect Extent (% RCA)0.00Rest Defect Extent (% RCA)0.00Rev. Defect Extent (% RCA)0.00 Stress Defect Extent (% ERIC)0.00Rest Defect Extent (% ERIC)0.00Rev. Defect Extent (% ERIC)0.00 Conclusion 1. Treadmill exercise cardioisotope stress test did not show any evidence of ischemia or infarct. 2. Normal left ventricular systolic function with ejection fraction calculated at 70%. 3. Patient had good activity tolerance. Low risk for cardiac events. Signed by : Chance Witt, Electronically Approved : 06/28/2020 15:27:08
== END ==
LOC: NM 09:32
PROVIDERS: ATTEND Internal Medicine Cardiovascular Disease
DX: I08.8 Other rheumatic multiple valve diseases (principal); I48.0 Paroxysmal atrial fibrillation; I10 Essential (primary) hypertension
CPT/HCPCS: 78452; 93017; 93306; A9500